=== PATIENT | female | born 1945 | race Caucasian/White ===

== ENCOUNTER 2018-03-02 21:17 | Emergency (ER) | payer OTHER ==
[~2018-03-02] VITALS: Ht 165.1 cm; Wt 81.6 kg
[2018-03-02 21:23] VITALS: BP 153/96
[2018-03-02 22:51] LABS: APPEARANCE CLOUDY ((CLEAR)); BILIRUBIN NEGATIVE; BLOOD LARGE; COLOR AMBER ((YELLOW)); GLUCOSE (STRIP) NEGATIVE; KETONES NEGATIVE; LEUKOCYTES LARGE; NITRITE NEGATIVE; PROTEIN (STRIP) >=500; SPECIFIC GRAVITY 1.024 (1.000-1.030); UROBILINOGEN 0.2 MG/DL (0.2-1.0)
[2018-03-02 23:13] LABS: RED BLOOD CELLS TNTC /HPF (0-5); UCUL ADDED? YES; WHITE BLOOD CELLS TNTC /HPF (0-5)
[2018-03-03] MEDS ORDERED: KEFLEX500 MG PO (00:16)
[2018-03-03] MEDS ORDERED: PYRIDIUM200 MG PO (00:16)
== END 2018-03-03 00:17 | disposition home or self-care (01) ==
LOC: EME 21:17
DX: N39.0 Urinary tract infection, site not specified (principal); B96.20 Unspecified Escherichia coli [E. coli] as the cause of diseases classified elsewhere; Z16.11 Resistance to penicillins; Z16.19 Resistance to other specified beta lactam antibiotics; I10 Essential (primary) hypertension; E78.5 Hyperlipidemia, unspecified; E11.9 Type 2 diabetes mellitus without complications; J30.9 Allergic rhinitis, unspecified; Z96.642 Presence of left artificial hip joint; Z95.5 Presence of coronary angioplasty implant and graft; Z90.49 Acquired absence of other specified parts of digestive tract
CPT/HCPCS: 81003; 87077; 87086; 87186; 99281; 99284; J0696; J3010